=== PATIENT | male | born 1990 | race African-American/Black ===

== ENCOUNTER 2019-10-06 02:44 | Emergency (ER) | payer SELFPAY ==
[~2019-10-06] VITALS: Ht 185.4 cm; Wt 90.0 kg
[2019-10-06] MEDS ORDERED: BACITRACIN ZINC OINT UDPKT TOP ONE (03:45)
[2019-10-06] MEDS ORDERED: ACETAMINOPHEN 325MG TABLET PO ONE (03:45)
[2019-10-06] MEDS ORDERED: LIDOCAINE HCL/PF 1% 10 MG/ML 5ML VIAL IJ ONE (03:45)
[2019-10-06] MEDS ORDERED: TETANUS, DIPHTHERIA, PERTUSSIS VAC/PF 0.5ML (>7YR OLD) IM ONE (03:45)
[2019-10-06] MEDS ORDERED: BACITRACIN ZINC OINT UDPKT TOP SCH (05:30)
[2019-10-06 05:43] VITALS: BP 139/89
== END 2019-10-06 05:44 | disposition home or self-care (01) ==
LOC: ER 02:44
DX: S01.111A Laceration without foreign body of right eyelid and periocular area, initial encounter (principal); S09.90XA Unspecified injury of head, initial encounter; Z98.890 Other specified postprocedural states; V49.88XA Car occupant (driver) (passenger) injured in other specified transport accidents, initial encounter; Y93.89 Activity, other specified; Y92.89 Other specified places as the place of occurrence of the external cause; Y99.8 Other external cause status
CPT/HCPCS: 12011; 90471; 90715; 99285; J3490